=== PATIENT | female | born 1980 | race Caucasian/White ===

== ENCOUNTER 2023-10-09 23:05 | Emergency (ER) | payer MEDICARE, MEDICAID, SELFPAY ==
[2023-10-09 23:17] VITALS: BP 110/70; PULSE 71; RESP 16; TEMP 37.2; O2SAT 95; BMI 17.2
--- NOTE | 2023-10-10 | ED.GENADULT ---
HPI - General Adult General Chief complaint: Unspecified Complaint, Adult Stated complaint: opioid withdrawal Time Seen by Provider: 10/09/23 23:21 History of Present Illness HPI narrative: Patient is a 43-year-old woman who has history of narcotic addiction who was recently on a methadone taper with her last dose being 4 days ago. She presents with nausea vomiting weakness rigors and fatigue consistent with her previous experience of narcotic withdrawal. She has not had any substances such as alcohol or any street drugs. She is unable to get hold of her methadone prescribing clinic which is called the [facility]. She presents asking for 3 day course of Suboxone to get through the weekend. She has been on Suboxone previously. She states that she has done well with that. Related Data Home Medications Medication Instructions Recorded Confirmed No Known Home Medications 10/09/23 10/09/23 Allergies Allergy/AdvReac Type Severity Reaction Status Date / Time No Known Drug Allergies Allergy Verified 10/09/23 23:12 Review of Systems Status of ROS: Reports: 10 or more systems reviewed and unremarkable except as noted in History and below [facility] Medical History Opioid dependence ?F11.20 - Opioid dependence, uncomplicated (ICD-10) Social History Smoking Status: Current every day smoker Do you use any of these nicotine containing products: Vaping Products Second hand tobacco smoke exposure: No How often do you have a drink containing alcohol: never How often do you have six or more drinks on one occasion: Never AUDIT-C Alcohol total score: 0 Non-prescribed substance use: former substance user Non-prescribed substance use details: hx fentanyl use. Clean x 8 months as of 10/09/23 service: No Exam Narrative: Exam Narrative: EXAM GENERAL: Patient appears tremulous and ill. EYES: No scleral icterus. LYMPH: No supraclavicular or cervical lymphadenopathy. SKIN: Visible skin seen during exam normal or with benign process only. EXT: No dependent lower extremity pedal edema. HEART: Regular rate and rhythm with no murmurs, rubs, or gallops. LUNGS: Clear to auscultation bilaterally with no crackles or wheezes. ABD: Soft, non tender, non distended. PSYCH: Good eye contact, speech is not pressured. Const: Vital Signs, click to edit/add: Vital Signs - 24 hr 10/09/23 23:17 Temperature 98.9 F Pulse Rate [Pulse Oximeter] 71 Respiratory Rate 16 Blood Pressure [Ri ght Upper Arm] 110/70 Pulse Oximetry 95 Oxygen Delivery Me thod Room Air Course Course ED Course: Patient seen and examined. Vital Signs Vital signs: Initial Vital Signs Temperature 98.9 F 10/09/23 23:17 Temperature Source Temporal Artery Scan 10/09/23 23:17 Pulse Rate 71 10/09/23 23:17 Pulse Rhythm Regular 10/09/23 23:17 Pulse Strength 3+ Normal 10/09/23 23:17 Respiratory Rate 16 10/09/23 23:17 Blood Pressure 110/70 10/09/23 23:17 Blood Pressure Mean 83 10/09/23 23:17 Blood Pressure Position Semi-Fowlers 10/09/23 23:17 Pulse Oximetry 95 10/09/23 23:17 Oxygen Delivery Method Room Air 10/09/23 23:17 Vital Signs Temperature 98.9 F 10/09/23 23:17 Pulse Rate 71 10/09/23 23:17 Respiratory Rate 16 10/09/23 23:17 Blood Pressure 110/70 10/09/23 23:17 Pulse Oximetry 95 10/09/23 23:17 Oxygen Delivery Method Room Air 10/09/23 23:17 Temperature 98.9 F 10/09/23 23:17 Pulse Rate 71 10/09/23 23:17 Respiratory Rate 16 10/09/23 23:17 Blood Pressure 110/70 10/09/23 23:17 Pulse Oximetry 95 10/09/23 23:17 Oxygen Delivery Method Room Air 10/09/23 23:17 Medical Decision Making MDM Narrative Medical decision making narrative: Patient presents with very difficult dilemma of narcotic withdrawal. We were unable to contact her prescriber of methadone. She would prefer not to go back on methadone. I did visit with the hospital tray line supervisor and we do feel like giving a single dose of Suboxone 8-2 is reasonable. I a.m. not able to send her home with 3 days of medication because we do not have that as a policy. When asked when she becomes ill tomorrow which he should do. I did ask her to call her prescribing clinic and see if they can make arrangements for her. She will see her regular doctor back on Thursday and get placed back in Suboxone Clinic for the time being. Patient otherwise appears on injured and not ill. She seems satisfied with this outcome. Differential Diagnosis Differential Diagnosis: Opioid withdrawal viral syndrome Discharge Plan Discharge Clinical Impression: Opioid withdrawal Patient Disposition: Home, Self-Care Condition: Stable Instructions: Opioid Withdrawal (ED) Additional Instructions: Follow-up with your prescribers clinic Follow-up with her primary physician Activity Level: No Restrictions Discharge Diet: Regular Prescriptions: No Action No Known Home Medications Follow Up/Referrals: Provider,Not a Local [Primary Care Provider] - Stand Alone Forms: [employer] Info Instructions
[2023-10-10] MEDS: BUPRENORPHINE-NALOX 8-2MG FILM 1 EACH SUBLINGUAL (00:01)
== END 2023-10-10 00:12 | disposition home or self-care (01) ==
PROVIDERS: Emergency Provider Internal Medicine
DX: F11.23 Opioid dependence with withdrawal (principal)
CPT/HCPCS: 99282; 99283; J0574

== ENCOUNTER 2024-06-27 15:29 | Outpatient (CLI) | payer OTHER, SELFPAY ==
--- NOTE | 2024-06-27 16:00 | CRLHL7_ITS ---
For Patients: As a result of the Century Cures Act, medical imaging exams and procedure reports are released immediately into your electronic medical record. You may view this report before your referring provider. If you have questions, please contact your health care provider. INDICATION: Retained IUD COMPARISON: none TECHNIQUE: 2D holder scale and color Doppler images were acquired of the pelvis using a transabdominal and transvaginal approach. FINDINGS: Sonographic images demonstrate a normal size and smooth outer contour of the uterus. Uterus measures 7.9 cm in length by 4.6 cm in AP diameter by 5.3 cm in transverse dimension. Posterior intramural fibroid at the lower uterine segment measures 11 x 7 x 9 millimeters. Endometrium measures 5.6 millimeters. The arms of the IUD extend into the fundal myometrium. The right ovary measures 3.4 x 2.1 x 3.1 cm in size and the left ovary measures 4.1 x 2.4 x 3.0 cm. The ovaries demonstrate normal arterial and venous blood flow on color Doppler analysis. There are no suspicious fluid collections within the cul-de-sac. Complex right ovarian cyst with heterogeneous echoes measuring 2.5 x 1.6 x 2.2 cm. No internal vascularity or suspicious solid component. IMPRESSION: The arms of the IUD extend into the fundal myometrium. Hemorrhagic right ovarian cyst measures 2.5 cm. Dictated by Jose Cortes MD @ 06/28/2024 7:02:19 AM (Electronically Signed)
== END 2024-06-27 15:30 | disposition home or self-care (01) ==
LOC: US 15:30
PROVIDERS: Visit Provider Family Medicine
DX: T83.39XA Other mechanical complication of intrauterine contraceptive device, initial encounter (principal); N83.201 Unspecified ovarian cyst, right side
CPT/HCPCS: 76830; 76856

== ENCOUNTER 2024-08-18 06:06 | Day surgery (SDC) | payer MEDICARE, OTHER, SELFPAY ==
[2024-08-18 06:52] VITALS: BP 108/68; PULSE 74; RESP 16; TEMP 36.8; O2SAT 97; BMI 17.6
--- NOTE | 2024-08-18 07:11 | W.PM.H&PU ---
History & Physical Update History & Physical Update H&P Reviewed and patient assessed: No changes noted
--- NOTE | 2024-08-18 07:28 | PM.PROC ---
Procedure Note Time Seen by Provider: 08:10 Date Seen: 08/18/24 Date of procedure: 08/18/24 Will [facility] bill your pro fee for this procedure?: Yes Procedure: Preoperative diagnosis: 44 year-old with IUD that is imbedded in the muscle of the uterus. Postoperative diagnosis: Same Procedure: Hysteroscopic removal of ParaGard IUD Anesthesia: Conscious sedation with paracervical block. Surgeon: Joyce Cevallos MD Estimated blood loss: 10 mL Urine output: 25 mL IV fluid: 20 mL Specimen: Endometrial curettings to pathology. Findings: Exam under anesthesia: Cervix palpates normal. Uterus: Mid position, less than 8 week size, mobile, without nodularity/masses palpable. Adnexa were without fullness or nodularity. On hysteroscopy: The right arm of the ParaGard IUD was imbedded in the right side of the fundus. The endometrium was normal in appearance. Procedure: Chanda was taken to the operating where conscious sedation was found to be adequate. She was placed in the dorsal lithotomy position. An exam under anesthesia was performed with findings stated above. She was then prepped and draped in normal sterile manner. A bivalve metal speculum was placed in the vaginal canal. The cervix and vaginal canal appear normal. A paracervical block was placed using 0.5% Marcaine: 10 mL injected at the 4 and 8 o'clock positions on the cervix, total of 20 mL. The anterior lip of the cervix was then grasped with a long Allis clamp. The cervix was dilated to Hegar 6. The uterus sounded to 8 cm. The hysteroscope advanced into the uterus and a diagnostic hysteroscopy was performed with findings stated above. Normal saline was used as the insufflation medium. The IUD was visualized and grasped with a hysteroscopic forceps. The strings were then pulled out of the cervix and the strings then grasped with a ring forceps and IUD removed without difficulty. The hysteroscope and Allis clamp were removed from the uterus and cervix. Excellent hemostasis noted. Nothing was used for hemostasis. The patient tolerated the procedure well. Sponge, lap and instruments counts were correct at the end of the procedure. The patient was awakened from anesthesia and taken to the recovery area in stable condition. Anesthesia: MAC and local Disposition: same day
[2024-08-18] MEDS: SODIUM CHLORIDE 0.9 % (FLUSH) 10 ML SYRINGE IVF (07:35)
[2024-08-18] MEDS: BUPIVACAINE 0.5% 30 ML INJECTION (07:56)
--- NOTE | 2024-08-18 08:12 | SUR.OPER ---
PATIENT IUD REMOVED BY MD JOSELYN--IUD DISCARDED PER DR. ALVES REQUEST.
[2024-08-18 08:15] VITALS: BP 94/59; PULSE 73; RESP 14; TEMP 36.5; O2SAT 96
--- NOTE | 2024-08-18 08:16 | W.ANESCHARGE ---
Anesthesia Charges Start Date/Time Anesthesia Start Date: 08/18/24 Anesthesia Start Time: 07:33 Stop Date/Time Anesthesia Stop Date: 08/18/24 Anesthesia Stop Time: 08:16
[2024-08-18 08:30] VITALS: BP 97/62; PULSE 68; RESP 16; O2SAT 97
[2024-08-18 08:45] VITALS: BP 116/86; PULSE 67; RESP 16; O2SAT 99
[2024-08-18 09:00] VITALS: BP 112/82; PULSE 70; RESP 16; O2SAT 98
[2024-08-18 09:15] VITALS: BP 101/56; PULSE 73; RESP 16; TEMP 36.9; O2SAT 97
--- NOTE | 2024-08-18 09:33 | SUR.PHASEII ---
Mother is unable to give patient a ride until 12p. Patient has met criteria for discharge and is discharged from Phase 2 recovery at 0930a and is in recovery room waiting for ride.
== END 2024-08-18 09:35 | disposition home or self-care (01) ==
LOC: OR 06:07
PROVIDERS: Visit Provider Obstetrics & Gynecology
PROC: 0U5B8ZZ Destruction of Endometrium, Via Natural or Artificial Opening Endoscopic (ICD-10-PCS; CPT 58558; principal; 2024-08-18 07:15)
DX: T83.32XA Displacement of intrauterine contraceptive device, initial encounter (principal)
CPT/HCPCS: 58562; 00940; 81025; J0665; J1100; J1885; J2250; J2405; J2704; J3490

== ENCOUNTER 2025-04-24 09:23 | Emergency (ER) | payer MEDICARE, OTHER, SELFPAY ==
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
--- OUTSIDE RECORDS SUMMARY | 2025-04-24 09:26 | XMS_ITS | Clinical Summary ---
Author Organization [employer] Address [address] [place] [address] Care Team Providers Care Collective Bargaining Specialist Name Role Phone Needs Pcp, Assignment Primary Care Provider [phone] Source Comments You are receiving this document as you are listed as the primary care provider,follow-up provider, or the patient has been referred to you for consultation.This is in compliance with the Medicare and[facility] Incentive [facility],which states Providers who transition their patient to another setting of careor provider of care or refers their patient to another provider of care shouldprovide summary care record for each transition of care or referral. [employer] Allergies Active Allergy Reactions Criticality Noted Date Comments Amoxicillin 04/13/2004 Medications * This document contains information received from the source organization and may not represent a complete record from that organization. Varenicline Tartrate (CHANTIX STARTING MONTH ) 0.5 MG X 11 & 1 MG X 42 tabletIndications :Tobacco use disorder (HRC) 1 wk before you stop smoking take 0.5mg daily on days 1-3, 0.5mg 2 times each day on days 4-7, then 1mg 2 times daily 53 Tab 0 05/19/20 13 Active Additional Information Patient not taking.Reported on 12/17/2023 varenicline (CHANTIX) 1 MG tabletIndications :Tobacco use disorder (HRC) Take 1 Tab by mouth two times a day. Take after eating with a full glass of water.NOTE:Dispe nse as maintenance for refills only. 56 Tab 2 05/19/20 13 Active Additional Information Patient not taking.Reported on 12/17/2023 CLOZAPINE OR Active Carboxymethylcell ul-Glycerin 0.5-0.9 % eye drop solutionIndicatio ns:Dry eye syndrome of bilateral lacrimal glands Place 1 Drop into both eyes two times a day. 15 mL 3 12/17/19 24 Active Additional Information Patient not taking.Reported on 12/17/2023 OLANZapine (ZYPREXA) 2.5 MG tablet Take 1 Tablet (2.5 mg) by mouth. 10/21/20 23 Active SUBLOCADE 300 MG/1.5ML subcutaneous injection Inject subcutaneously. 12/07/19 24 Active intra-uterine copper contraceptive ([id number]) device 1 Device by Intrauterine route. Active Active Problems Problem Noted Date Diagnosed Date Hepatitis C 05/19/2013 Overview (05/19/2013): Careplan: Background: dx'd early 1999 by [facility]; h/o IV drug use Goals/Recommendations: Lost to GI mgmt Immunizations Immunization Administration Dates Next Due HepA Ped/Adol (1-18 yrs) 05/19/2013 HepB Adult (Engerix-B, 20+ yrs, 3 dose series) 0 05/19/2013,04/18/2011 Influenza, Unspecified Formulation 09/15/2020 Tdap 09/07/2020,04/16/2011 Family History Medical History Relation Name Comments Cataract Maternal Grandmother Relation Name Status Comments Maternal Grandmother Social History Tobacco Use Types Packs/Day Years Used Date Smoking Tobacco: Former Cigarettes 1 16 Smokeless Tobacco: Never Tobacco Cessation:Counseling Given: Not Answered Comments:1 pack per day Alcohol Use Standard Drinks/Week Comments No 0 (1 standard drink = 0.6 oz pur e alcohol) Comments No Sex and Gender Information Value Date Recorded Sex Assigned at Not on file Legal Sex Female 5:19 AM CDT Gender Identity Not on file Sexual Orientation Not on file 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 Not on file Not on file Last Filed Vital Signs Vital Sign Reading Time Taken Comments Blood Pressure 103/68 12/17/2023 3:27 PM SEALANT MIXER Pulse 89 12/17/2023 3:27 PM SEALANT MIXER Temperature 36.4 C (97.5 F) 06/01/2014 8:52 PM CDT Respiratory Rate 16 06/02/2014 1:30 AM CDT Oxygen Saturation 98% 06/02/2014 1:30 AM CDT Inhaled Oxygen Concentration - - Weight 51.9 kg (114 lb 6.4 oz) 12/17/2023 3:27 P M SEALANT MIXER Height 160.7 cm (5' 3.25) 05/19/2013 11:10 AM C DT Body Mass Index - - Plan of Treatment Health Maintenance Due Date Last Done Comments Colon Cancer Screening Plan Due 1979 Medicare Annual Wellness Visit 1980 Mammogram 1979 HepA Vaccine (1 of 2 - Risk 2-dose series) 1998 05/19/2013 HepB Vaccine (3) 07/14/2013 05/19/2013, 04/18/2011 Cholesterol 2024 05/19/2013 COVID-19 Vaccine ( - season) 2024 Influenza Vaccine (Season Ended) 2025 09/15/2020 Cervical Cancer Screening 12/17/20282023, 12/17/2023, 05/19/2013, Additional history exists Zoster/Shingles Vaccine (1 of 2) 2029 DTaP/Tdap/Td Vaccine (3 - Tdap) 09/07/2030 09/07/2020, 04/16/2011 Hep C Screening (Preventive Services) Completed 06/01/2014, 05/19/2013, 05/19/2013, Additional history exists HIV Screening (Preventive Services) Completed 07/13/2024 HPV Vaccine Aged Out No longer eligi ble based on patient's age to complete this topic Hib Vaccine Aged Out No longer eligi ble based on patient's age to complete this topic IPV (Polio) Vaccine Aged Out No longe r eligible based on patient's age to complete this topic MCV4 Vaccine Aged Out No longer eligi ble based on patient's age to complete this topic Meningococcal B Vaccine Aged Out No l onger eligible based on patient's age to complete this topic Pneumococcal Vaccine Aged Out No long er eligible based on patient's age to complete this topic Procedures Procedure Name Priority Date/Time Associated Diagnosis Comments CYTOLOGY (PAP) Routine 12/17/2023 4:08 PM SEALANT MIXER Screening for malignant neoplasm of cervix HEPATITIS C ANTIBODY, WITH REFLEX (ANTI-HCV) Routine 05/19/2013 11:39 AM CDT Hepatitis C LIPID PANEL & DIRECT LDL (IF NEEDED) Routine 05/19/2013 11:39 AM CDT Screening for endocrine, nutritional, metabolic and immunity disorder from Last 3 Months or Most Recently Relevant to Health Maintenance Results * PAP Test (12/17/2023 4:08 PM SEALANT MIXER) Case Report Pap Case: [id number] Authorizing Provider: Hans Meneses MD Collected: 12/17/2023 1601 Ordering Location: [place] [address] Received: 12/17/2023 1621 Obstetrics/Gynec ology First Screen: Alicia Ac Rescreen: Trista Figueroa CT (ASCP) Specimen: Pap Test, Routine, Cervix/Endocervix 01/07/2024 4:00 PM SEALANT MIXER [facility] Pap Specimen Adequacy Satisfactory for evaluation, endocervical/barkley sformation zone component present. 01/07/2024 4:00 PM SEALANT MIXER [facility] Pap Interpretation (NILM) Negative for intraepithelial lesion or malignancy. 01/07/2024 4:00 PM SEALANT MIXER [facility] at 1600 SEALANT MIXER Pap Disclaimer The Pap test is a screening test to aid in the detection of cervical and vaginal cancers and their precursor lesions. It is not a diagnostic procedure and should not be used as the sole means of detecting malignancy. Both false-positive and false-negative results may occur. 01/07/2024 4:00 PM SEALANT MIXER [facility] Gross Description The specimen is received in SurePath fixative and properly labeled. 1 Pap-stained SurePath slide is prepared. 01/07/2024 4:00 PM SEALANT MIXER [facility] Embedded Images 4:00 PM SEALANT MIXER [facility] Other Specimen Type ENTIRE ENDOCERVIX / Unknown 12/17/2023 4:08 PM SEALANT MIXER 12/17/2023 4:21 PM SEALANT MIXER Comment:LMP: Patient's last menstrual period was 11/24/2023 (exact date). us Hans Meneses MD LAB PATHOLOGY Final Resul t Performing Organization Address [facility] de Phone Number [facility] [address] * LIPID PANEL AND DIRECT LDL(IF NEEDED) (05/19/2013 11:39 AM CDT) Hours Fasting 12 hours [facility] Cholesterol 178 0 - 199 mg/dl [facility] Triglyceride 87 0 - 149 mg/dl [facility] HDL 99 >40 mg/dl [facility] LDL, Calc. 62 0 - 129 mg/dl [facility] Non HDL Chol, Calc 79 mg/dl [facility] 05/19/2013 11:3 9 AM CDT 05/19/2013 11:40 AM CDT Narrative [facility] - 05/19/2013 8:33 PM CDT Performed at [facility], [address] [place], [place] [id number] Jami Escoto PA-C LAB_1 Final Result Performing Organization Address [facility] de Phone Number [facility] [phone] * (ABNORMAL) HEPATITIS C ANTIBODY, WITH REFLEX (05/19/2013 11:39 AM CDT) Anti-HCV Positive (Reactive)(A ) NEGNR [facility] Comment: Per the CDC's Recommended Guidelines, Hepatitis C PCR Quantitative Testing has been Ordered This result has been reported to the [facility] Department of Health. 05/19/2013 11:3 9 AM CDT 05/19/2013 11:40 AM CDT Narrative [facility] - 05/20/2013 10:03 AM CDT Performed at [facility], [address] [place] [id number] Jami Escoto PA-C LAB_1 Final Result Performing Organization Address [facility] de Phone Number [facility] [phone] from Last 3 Months or Most Recently Relevant to Health Maintenance Insurance MEDICARE MEDICA ACCESSABILITY Care Teams Collective Bargaining Specialist Relationship Specialty Start Date End [place] [address] PCP - General 12/15/23
--- OUTSIDE RECORDS SUMMARY | 2025-04-24 09:26 | XMS_ITS | Encounter Summary ---
Author Organization [facility] Address [address] [address] Care Team Providers Care Community Development Specialist Name Role Phone Needs Pcp, Assignment Primary Care Provider [phone] Encounter Details Date Type Department Care Team (Late st Contact Info) Description 06/01/2014 Correspondence [facility] [address] [place] [id number] Radiology, Provider MRI SAFETY SHEET AND COMPATIBILITY FORM Social History Tobacco Use Types Packs/Day Years Used Date Smoking Tobacco: Every Day Cigarettes 1 16 Smokeless Tobacco: Never Comments:1 pack per day Alcohol Use Standard Drinks/Week Comments No 0 (1 standard drink = 0.6 oz pur e alcohol) Comments No Sex and Gender Information Value Date Recorded Sex Assigned at Not on file Legal Sex Female 5:19 AM CDT Gender Identity Not on file Sexual Orientation Not on file 

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
--- OUTSIDE RECORDS SUMMARY | 2025-04-24 09:26 | XMS_ITS | Clinical Summary ---
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 For routine questions regarding patient records, call [phone] during business hours, M-F 8:00 AM - 5:00 PM Central Time. Record requests for emergency care only can be directed to [phone] at any time.[facility] Allergies No known active allergies Medications acetaminophen (TYLENOL) 500 mg tablet Take 1,000 mg by mouth every 6 (six) hours as needed for pain. 0 Active calcium carbonate 1,500 mg (600 mg calcium) tablet Take 1 tablet by mouth daily. 0 Active cholecalciferol , vitamin D3, 25 mcg (1,000 Unit) tablet Take 50 mcg by mouth daily. 1 Active ibuprofen (ADVIL,MOTRIN) 600 mg tablet Take 600 mg by mouth every 6 (six) hours as needed for pain. 0 Active copper (PARAGARD) IUD 1 each by intrauterine route continuously. Active B complex-vitamin s (BALANCE B-50) tablet Take 1 tablet by mouth daily. Active sennosides-docu sate sodium (SENOKOT-S) 8.6-50 mg per tablet Take 1 tablet by mouth 2 (two) times a day. 2 Active Additional Information Patient taking differently:1 tablet oral2 times daily PRN, constipation, Reported on 02/05/2023 pregabalin (LYRICA) 25 mg capsule Take 25 mg by mouth 3 (three) times a day. [address] tablet TAKE 1 TABLET BY MOUTH DAILY FOR 24 DAYS 120 tablet 2 Active Additional Information Patient taking differently: 81 mg oral Daily, Reported on 02/05/2023 multivitamin capsule Take 1 capsule by mouth daily. Active oxyCODONE (ROXICODONE) 5 mg immediate release tabletIndicatio ns:Acute Pain Take 1 tablet (5 mg total) by mouth every 4 (four) hours as needed for pain Indication: Acute Pain. 18 tablet 02/06/2023 12:46 PM CDT 3 Active OLANZapine (ZyPREXA) 5 mg tablet Take 5 mg by mouth at bedtime. 3 Active OLANZapine (ZyPREXA) 2.5 mg tablet Take 2.5 mg by mouth. 3 Active buprenorphine-n aloxone (SUBOXONE) 8-2 mg [address] SL film Place 1 Film under the tongue daily. 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 Hepatitis C Acute Without Coma 11/28/2021 Overview (02/05/2022): Created by [facility] Annotation: Mar 23 2010 11:14AM - Renetta Lord: Is followed by GI Replacement Utility updated for latest IMO load Fracture Tibia Shaft Other C losed Subsequent With Nonunion Right 02/18/2021 Overview (02/05/2022): Added automatically from request for surgery [id number] Added automatically from request for surgery [id number] Added automatically from request for surgery [id number] Added automatically from request for surgery [id number] Fracture Nose Closed Initial 09/08/2020 Fracture Vertebra Thoracic Closed Initial 2019 Fracture Clavicle Closed Initial Left 09/07/2020 Fracture Humerus Shaft Closed Initial Left 09/07 Overview (02/05/2022): Added automatically from request for surgery [id number] Added automatically from request for surgery [id number] Added automatically from request for surgery [id number] Added automatically from request for surgery [id number] Fracture Rib Multiple Closed Initial Left 2019 Social History Tobacco Use Types Packs/Day Years Used Date Smoking Tobacco: Former Cigarettes 0.3 30 Smokeless Tobacco: Former Tobacco Cessation:Counseling Given: Not Answered Comments:I use a vape pen lightly throughout the day (3mg nicotine juice) Alcohol Use Standard Drinks/Week Comments Never 0 (1 standard drink = 0.6 oz pur e alcohol) Humiliation, Afraid, Rape, and Kick questionnair e Answer Date Recorded Within the last year, have y ou been afraid of your partner or ex-partner? No 12/20/2022 Within the last year, have y ou been humiliated or emotionally abused in other ways by your partner or ex-partner? Patient declined 12/20/2022 Within the last year, have y ou been kicked, hit, slapped, or otherwise physically hurt by your partner or ex-partner? No 12/20/2022 Within the last year, have y ou been raped or forced to have any kind of sexual activity by your partner or ex-partner? No 12/20/2022 Hunger Vital Sign Answer Date Recorded Within the past 12 months, y ou worried that your food would run out before you got the money to buy more. Sometimes true Within the past 12 months, t he food you bought just didn't last and you didn't have money to get more. Sometimes true PRAPARE - Transportation Answer Date Re corded In the past 12 months, has l ack of transportation kept you from medical appointments or from getting medications? Yes 12/03 In the past 12 months, has l ack of transportation kept you from meetings, work, or from getting things needed for daily living? Yes 12/20/2022 Housing Stability Vital Sign Answer Terence e Recorded In the last 12 months, was t here a time when you were not able to pay the mortgage or rent on time? Yes 12/20/2022 In the last 12 months, how many places have you lived? 1 12/20/2022 In the last 12 months, was t here a time when you did not have a steady place to sleep or slept in a retirement (including now)? No 12/20/2022 Education Answer Date Recorded What is the highest level of school you have completed or the highest degree you have received? Associate degree: occupational, technical, or vocational program 03/09/2022 Comments Unknown Sex and Gender Information Value Date Recorded Sex Assigned at Female 03/06/2022 9:24 PM CDT Legal Sex Female 7:11 AM CDT Gender Identity Female 02/20/2023 9:54 AM CDT Sexual Orientation Straight 03/06/2022 9: 24 PM CDT Last Filed Vital Signs Vital Sign Reading Time Taken Comments Blood Pressure 105/65 02/06/2023 12:00 PM CDT Pulse 92 02/06/2023 12:00 PM CDT Temperature 36.3 C (97.3 F) 02/06/2023 12:00 PM CDT Respiratory Rate 20 02/06/2023 12:00 PM CDT Oxygen Saturation 97% 02/06/2023 12:00 PM CDT Inhaled Oxygen Concentration - - Weight 47 kg (103 lb 9.9 oz) 02/05/2023 9:30 AM CDT Height 162 cm (5' 3.78) 02/05/2023 9:30 AM CDT Body Mass Index 17.91 02/05/2023 9:30 AM CDT Plan of Treatment Health Maintenance Due Date Last Done Comments CT Colonography 1979 Cologuard 1979 Colonoscopy 1979 Colorectal Cancer Screening 1979 FIT 1979 HIV Screening 1979 Lipid (Cholesterol) Screening 1979 Mammogram 1979 Hepatitis A Vaccines (1 of 2 - Risk 2-dose series) 1998 05/19/2013 Pneumococcal vaccine (0-49 years) (1 of 2 - PCV) 1998 Hepatitis B Vaccines (3 of 3 - 19+ 3-dose series) 07/14/2013 05/19/2013, 04/18/2011 COVID-19 Vaccine (1 - season) 2024 Influenza Vaccine (#1) 2024 09/15/2020, 2019 Depression Screening (Annual PHQ-2) 11/02/2024 Tobacco Cessation counseling 07/06/2025 07/06/2024 Fasting Glucose for Diabetes Screening 07/16/2026 07/16/2023, 03/12/2022, 11/23/2018, Additional history exists Cervical/Vaginal Cancer Screening 12/17/2026 12/17/2023 DTaP,Tdap,and Td Vaccines (3 - Td or Tdap) 09/07/2030 09/07/2020, 04/16/2011 Glucose Test for Med Monitoring Discontinued 07/16/2023, 03/12/2022, 11/23/2018, Additional history exists Hepatitis B Screening Discontinued 07/13/2024 HPV Vaccines Aged Out No longer eligi ble based on patient's age to complete this topic IPV Vaccines Aged Out No longer eligi ble based on patient's age to complete this topic Medical Devices Implanted Type Area Lining Stamper Device Identifier Shelf Expiration Date Model / Serial / Lot Grft Tndn Tib Post zn 23 - [id number] - [id number] Implanted:Qt y: 1 on 02/05/[place] [facility] [place] Tissue Left: Arm Allosource 02/20/2027 [id number] / [id number] / Breast Implant Breast Implant Breast Description:Breast augmentat ion, 2006. Sut [place] Fibertak 1.3mm - [id number] 2 Implanted:Qt y: 1 on 03/12/2022 by [place] [facility] [place] Hard[place] e.g. pins/screw s/rods Left: Shoulder Arthrex [id number] 11/01/2026 AR-3602 / / [id number] Clp Apr Lgs Intnl Sm 9.0 - [id number] 2 Implanted:Qt y: 1 on 03/12/2022 by Poncho Smith M[place] [facility] [place] e.[place]. pins/screw s/rods Right: Leg Ethicon MCS20 / / Straight Plate Implanted:Qt y: 1 on 03/12/2022 by Cam[place] Ly[place] M[place] [facility] [place] e.g. pins/screw s/rods Left: Wrist [employer] Inc RFP-STR / / Scrw Braulio 3.2x12 - [id number] 2 Implanted:Qt y: 3 on 03/12/2022 by Camden Ly[place] M.[place]. [place] [facility] [place] Hard[place] e.g. pins/screw s/rods Left: Wrist [employer] HEX3.2-12 / / Scrw Lck Lp 3.2x10 - [id number] 2 Implanted:Qt y: 1 on 03/12/2022 by Camden Ly[place] M.[place]. [place] [facility] [place] e.g. pins/screw s/rods Left: Wrist [employer] LCBS3.2-10 / / Scrw Braulio 2.7x18 - [id number] 2 Implanted:Qt y: 1 on 03/12/2022 by Cam[place] Ly[place] M[place] [facility] [place] e.g. pins/screw s/rods Left: Wrist [employer] HEX2.7-18 / / Scrw Lck 2.7x8 - [id number] 2 Implanted:Qt y: 1 on 03/12/2022 by Cam[place] M[place] [facility] [place] e.g. pins/screw s/rods Left: Wrist [employer] LCBS2.7-08 / / Scrw Lck 2.7x10 - [id number] 2 Implanted:Qt y: 1 on 03/12/2022 by Cam[place] Ly[place] M[place] [facility] [place] e.g. pins/screw s/rods Left: Wrist [employer] LCBS2.7-10 / / Scrw Lck 2.7x18 - [id number] 2 Implanted:Qt y: 1 on 03/12/2022 by Camden Ly[place] M[place]. [place] [facility] [place] e.g. pins/screw s/rods Left: Wrist [employer] LCBS2.7-18 / / Clp Apr [facility] Int [facility] 9.75 - [id number] 2 Implanted:Qt y: 1 on 03/12/2022 by Camden Ly[place] M.[place]. [place] [facility] [place] e.g. pins/screw s/rods Left: Shoulder Ethicon MSM20 / / Clp Apr [facility] Int [facility] 9.75 - [id number] 2 Implanted:Qt y: 2 on 03/12/2022 by Poncho Smith M.D. [place] [facility] [place] e.g. pins/screw s/rods Right: Leg Ethicon MSM20 / / Clp Apr [facility] 9.0 - [id number] 2 Implanted:Qt y: 1 on 03/12/2022 by Camden Lyons M.D. [place] [facility] [place] e.g. pins/screw s/rods Left: Shoulder Ethicon MCS20 / / Sut [place] Fibertak 1.3mm - [id number] 2 Implanted:Qt y: 1 on 03/12/2022 by Camden Lyons M.D. [place] [facility] [place] e.g. pins/screw s/rods Left: Shoulder Arthrex [id number] 12/02/2026 AR-3602 / / [id number] Anch Sut Crk 5.5 - [id number] 5 Implanted:Qt y: 1 on 02/05/2023 by Camden Ly[place] M.D. [place] [facility] [place] e.g. pins/screw s/rods Left: Arm Arthrex [id number] 01/30/2026 AR-1927BCFT / / [id number] Anch Sut Crk 5.5 - [id number] 5 Implanted:Qt y: 1 on 02/05/2023 by Camden Lyons M.D. [place] [facility] [place] Hard[place] e.g. pins/screw s/rods Left: Arm Arthrex [id number] 12/30/2025 AR-1927BCFT / / [id number] Kwire Fix Troc Pt 0.035x4 - [id number] 5 Implanted:Qt y: 4 on 02/05/2023 by Camden Lyons M.[place]. [place] [facility] [place] e.g. pins/screw s/rods Left: Arm Ankur [id number] / / Grft Nrv Neuragen Gd 1.5x3 - [id number] 2 Implanted:Qt y: 1 on 03/12/2022 by Poncho Smith M[place] [facility] [place] Mesh or Patch Left: Shoulder Integra 07/02/2023 [id number] / / [id number] Grft Nrv Neuragen Gd 2x2 - [id number] 2 Implanted:Qt y: 1 on 03/12/2022 by Poncho Smith M[place] [facility] [place] Mesh or Patch Left: Shoulder Integra 01/30/2023 [id number] / / [id number] Misc Other Misc Other Leg Description:Right Tibula and Fibula have chris and nails in. 09/07/2020. Misc Other Misc Other Leg Description:Left humerus has plate and screws. 09/07/2020. Misc Other Misc Other Mandible Description:Mandible has cris anne and screws in it. 09/07/2020. Misc Other Misc Other Uterus Description:IUD Procedures Procedure Name Priority Date/Time Associated Diagnosis Comments GLUCOSE, WHOLE BLOOD STAT 03/12/2022 8:11 AM CDT from Last 3 Months or Most Recently Relevant to Health Maintenance Results * Glucose, Whole Blood (03/12/2022 8:11 AM CDT) Glucose 85 70 - 140 mg/dL 03/12/2022 8:14 AM CDT STMA Blood (Blood, Arterial Line) 03/12/2022 8:11 AM CDT 03/12/2022 8:11 AM CDT Wesley Ramírez M.D. 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
--- OUTSIDE RECORDS SUMMARY | 2025-04-24 09:26 | XMS_ITS | Data Portability ---
Author Organization [employer] Address [address] [facility] [address] [place] [address] Care Team Providers Care Stores Assistant Name Role Phone ADAM GORE Primary Care Provider Unavailabl e Assessment No assessment recorded. Plan of Treatment Reminders Order Date Submit Date Provider Last Modified By Organization Details Last Modified Time Details Appointments None recorded. Lab CBC w/ auto diff 2016 017 [email or web address] [facility] ([facility]), [address] [place], [address], 7 10:45:02 CBC w/ auto diff 2016 017 [email or web address] [facility] ([facility]), [address] [place], [address], 7 20:46:59 CBC w/ auto diff 2014 015 EVE [facility] ([facility]), [address] [place], [address], 5 09:30:00 PT/INR 2014 015 EVE [facility] ([facility]), [address] [place], [address], 5 05:10:59 CMP, serum or plasma 2014 015 EVE [facility] ([facility]), [address] [place], [address], 5 09:29:20 TSH, serum or plasma 2014 015 EVESOLEDAD [facility]), [address] [facility], [place], [address], 5 09:29:45 HBsAg (hepatitis B surface Ag) neutraliza tion, serum 2014 015 [facility] ([facility]), [address] [facility], [place], [address], 5 09:30:43 hepatitis C genotype, serum or plasma 2014 015 [facility] ([facility]), [address] [facility], [place], [address], 5 19:38:03 hepatitis C virus RNA, viral load, PCR, serum or plasma 2014 015 [facility] ([facility]), [address] [place], [address], 5 19:37:48 HIV (1+2) antibodies , EIA, serum, reflex HIV-1 western blot (WB) 2014 015 [facility] ([facility]), [address] [place], [address], 5 09:30:28 Referral None recorded. Procedures None recorded. Surgeries None recorded. Imaging None recorded. Medication Orders None recorded. Patient TargetsNo targets recorded. Patient Instructions Encounter Date Encounter Id Patient Instructions Last Modified By Organization Details Last Modified Time 10/18/2015 [id number] Portions of t his report may have been created with iPrint voice recognition software. Efforts were made to ensure accuracy, but wrong-word substitutions or sound-alike substitutions may have occurred due to the inherent limitations in this technology. [email or web address] Not available 10/18/2015 15:33:31 09/19/2016 [id number] smoking cessatio n counseling, greater than 3 minutes up to 10 minutes [email or web address] [id number] Not available 10/18/2016 04:39:19 Follow up with Gastroenterology as discussed [email or web address] Not available 09/19/2016 20:24:41 Patient preferences have been discussed and considered.Portio ns of this report may have been created with iPrint voice recognition software. Efforts were made to ensure accuracy, but wrong-word substitutions or sound-alike substitutions may have occurred due to the inherent limitations in this technology.Indic ations and correct use of medicine(s) was described in detail to include any potentially adverse side effects. Patient verbally gives understanding and will use prescription(s) appropriately, and will immediately take discussed action if any such effects present. [email or web address] Not available 09/19/2016 20:24:44 12/22/2016 [id number] neck strain or sprain: rehab exercises Not available 12/22/2016 20:42:39 neck pain: care instructions Not available 12/22/2016 20:42:39 shoulder stretch es: exercises Not available 12/22/2016 20:42:39 shoulder pain: c are instructions Not available 12/22/2016 20:42:39 Reason for Referral None Reported. Results Created Date Observation Date Name Description Value Unit Range Abnormal Flag Note LastModifiedBy Organization Detail LastModifiedTime 10/18/20 15 10/18/2015 proth rombi n time PT, patient 13.7 sec 12.0-1 4.2 Not Available [facility] Dept [address] [place], [address], 10/19/2015 05:10:57 10/18/20 15 10/18/2015 proth rombi n time INR 1.1 0.9-1. 1 Usual oral antic oagul ant range : 2.0 to 3.0 High level oral antic oagul ant range : 2.5 to 3.5 Testi ng Perfo rmed: [facility], [address], [place] [address] Not Available [facility] Dept [address], [place], [address], 10/19/2015 05:10:57 10/18/20 15 10/18/2015 CMP, serum or plasm a sodium 139 mmol/ L 135-14 5 Not Available [facility] ([facility]) [address] [place], [address], 10/19/2015 09:29:17 10/18/20 15 10/18/2015 CMP, serum or plasm a potassium 4.2 mmol/ L 3.5-5. 3 Not Available [facility] ([facility]) [address] [place], [address], 10/19/2015 09:29:17 10/18/20 15 10/18/2015 CMP, serum or plasm a chloride 104 mmol/ L 99-109 Not Available [facility] ([facility]) [address] [place], [address], 10/19/2015 09:29:17 10/18/20 15 10/18/2015 CMP, serum or plasm a CO2 23 mmol/ L 22-31 Not Available [facility] ([facility]) [address] [place], [address], 10/19/2015 09:29:17 10/18/20 15 10/18/2015 CMP, serum or plasm a glucose 65 mg/dL 65-99 Not Available [facility] ([facility]) [address] [place] [address], [address], 10/19/2015 09:29:17 10/18/20 15 10/18/2015 CMP, serum or plasm a BUN 11 mg/dL 8-25 Not Available [facility] ([facility]) [address] [place] [address], [address], 10/19/2015 09:29:17 10/18/20 15 10/18/2015 CMP, serum or plasm a creatinine 0.59 mg/dL 0.50-1 .00 IDMS trace able creat inine Not Available [facility] ([facility]) [address] [facility], [address], 10/19/2015 09:29:17 10/18/20 15 10/18/2015 CMP, serum or plasm a calcium 9.8 mg/dL 8.5-10 .2 Not Available [facility] ([facility]) [address] [facility], [address], 10/19/2015 09:29:17 10/18/20 15 10/18/2015 CMP, serum or plasm a protein, total 8.0 g/dL 6.2-8. 2 Not Available [facility] ([facility]) [address] [facility], [address], 10/19/2015 09:29:17 10/18/20 15 10/18/2015 CMP, serum or plasm a albumin 4.4 g/dL 3.5-4. 7 Not Available [facility] ([facility]) [address] [facility] [place], [address], 10/19/2015 09:29:17 10/18/20 15 10/18/2015 CMP, serum or plasm a bilirubin, total 0.9 mg/dL 0.1-1. 5 Not Available [facility] ([facility]) [address] [facility] [place], [address], 10/19/2015 09:29:17 10/18/20 15 10/18/2015 CMP, serum or plasm a alkaline phosphatase 72 U/L 35-115 Not Available [facility] ([facility]) [address] [facility], [address], 10/19/2015 09:29:17 10/18/20 15 10/18/2015 CMP, serum or plasm a AST 82 U/L 10-45 high Not Available [facility] ([facility]) [address] [facility], [address], 10/19/2015 09:29:17 10/18/20 15 10/18/2015 CMP, serum or plasm a ALT 107 U/L 10-65 high Not Available [facility] ([facility]) [address] [place], [address], 10/19/2015 09:29:17 10/18/20 15 10/18/2015 CMP, serum or plasm a anion gap 12 mmol/ L 5-16 Not Available [facility] ([facility]) [address] [place], [address], 10/19/2015 09:29:17 10/18/20 15 10/18/2015 CMP, serum or plasm a BUN/creatini ne ratio (calc) 18.6 ratio 11-35 Not Available [facility] ([facility]) [address] [place], [address], 10/19/2015 09:29:17 10/18/20 15 10/18/2015 CMP, serum or plasm a estimated GFR (calc) >60 mL/mi n/1.7 3m2 >60 GFR <60: Chron ic kidne y disea se, if found over a 3 month perio d. GFR <15: Kidne y failu re. For Afric an Ameri cans, multi ply the calcu lated GFR by 1.210 Testi ng Perfo rmed: [facility], [address], [place] [address] Not Available [facility] ([facility]) [address] [place], [address], 10/19/2015 09:29:17 10/18/20 15 10/18/2015 TSH, serum or plasm a TSH 0.50 uIU/m L 0.45-5 .10 Testi ng Perfo rmed: [facility], [address], [place] [address] Not Available [facility] ([facility]) [address] [place], [address], 10/19/2015 09:29:42 10/18/20 15 10/18/2015 CBC w/ auto diff white blood cells 8.2 K/uL 3.8-11 .0 Not Available [facility] ([facility]) [address] [facility], [address], 10/19/2015 09:29:58 10/18/20 15 10/18/2015 CBC w/ auto diff red blood cells 5.36 M/uL 3.70-5 .10 high Not Available [facility] ([facility]) [address] [facility] [place], [address], 10/19/2015 09:29:58 10/18/20 15 10/18/2015 CBC w/ auto diff hemoglobin 18.4 g/dL 11.3-1 5.5 high Not Available [facility] ([facility]) [address] [facility], [address], 10/19/2015 09:29:58 10/18/20 15 10/18/2015 CBC w/ auto diff hematocrit 52.6 % 34.0-4 6.0 high Not Available [facility] ([facility]) [address] [facility], [address], 10/19/2015 09:29:58 10/18/20 15 10/18/2015 CBC w/ auto diff MCV 98.2 fL 80.0-1 00.0 Not Available [facility] ([facility]) [address] [facility], [address], 10/19/2015 09:29:58 10/18/20 15 10/18/2015 CBC w/ auto diff MCH 34.3 pg 27.0-3 4.0 high Not Available [facility] ([facility]) [address] [facility] [place], [address], 10/19/2015 09:29:58 10/18/20 15 10/18/2015 CBC w/ auto diff MCHC 34.9 g/dL 32.0-3 5.5 Not Available [facility] ([facility]) [address] [place], [address], 10/19/2015 09:29:58 10/18/20 15 10/18/2015 CBC w/ auto diff RDW 12.6 % 11.0-1 5.5 Not Available [facility] ([facility]) [address] [facility], [place], [address], 10/19/2015 09:29:58 10/18/20 15 10/18/2015 CBC w/ auto diff platelets 162 K/uL 150-40 0 Not Available [facility] ([facility]) [address] [facility], [place], [address], 10/19/2015 09:29:58 10/18/20 15 10/18/2015 CBC w/ auto diff neutrophils 59.9 % 40.0-7 5.0 Not Available [facility] ([facility]) [address] [facility], [place], [address], 10/19/2015 09:29:58 10/18/20 15 10/18/2015 CBC w/ auto diff lymphocytes 29.5 % 15.0-4 8.0 Not Available [facility] ([facility]) [address] [facility], [place], [address], 10/19/2015 09:29:58 10/18/20 15 10/18/2015 CBC w/ auto diff monocytes 7.4 % 0.0-12 .0 Not Available [facility] ([facility]) [address] [place], [address], 10/19/2015 09:29:58 10/18/20 15 10/18/2015 CBC w/ auto diff eosinophils 1.1 % 0.0-7. 0 Not Available [facility] ([facility]) [address] [place], [address], 10/19/2015 09:29:58 10/18/20 15 10/18/2015 CBC w/ auto diff basophils 2.1 % 0.0-2. 0 high Not Available [facility] ([facility]) [address] [place], [address], 10/19/2015 09:29:58 10/18/20 15 10/18/2015 CBC w/ auto diff neutrophils, absolute 4.90 K/uL 1.90-7 .40 Not Available [facility] ([facility]) [address] [facility], [place], [address], 10/19/2015 09:29:58 10/18/20 15 10/18/2015 CBC w/ auto diff lymphocytes, absolute 2.40 K/uL 1.00-3 .90 Not Available [facility] ([facility]) [address] [facility], [place], [address], 10/19/2015 09:29:58 10/18/20 15 10/18/2015 CBC w/ auto diff monocytes, absolute 0.60 K/uL 0.00-0 .80 Not Available [facility] ([facility]) [address] [facility], [place], [address], 10/19/2015 09:29:58 10/18/20 15 10/18/2015 CBC w/ auto diff eosinophils, absolute 0.10 K/uL 0.00-0 .50 Not Available [facility] ([facility]) [address] [facility], [place], [address], 10/19/2015 09:29:58 10/18/20 15 10/18/2015 CBC w/ auto diff basophils, absolute 0.20 K/uL 0.00-0 .10 high Not Available [facility] ([facility]) [address] [place], [address], 10/19/2015 09:29:58 10/18/20 15 10/18/2015 CBC w/ auto diff differential type SEE BELOW Autom ated Diffe renti al verif ied by regi crowe Not Available [facility] ([facility]) [address] [facility], [place], [address], 10/19/2015 09:29:58 10/18/20 15 10/18/2015 CBC w/ auto diff RBC morphology Normal Not Available [facility] ([facility]) [address] [facility], [place], [address], 10/19/2015 09:29:58 10/18/20 15 10/18/2015 CBC w/ auto diff WBC morphology Normal Not Available [facility] ([facility]) [address] [place], [address], 10/19/2015 09:29:58 10/18/20 15 10/18/2015 CBC w/ auto diff platelet morphology Adequa te Testi ng Perfo rmed: [facility], [address], [place] [address] Not Available [facility] ([facility]) [address] [facility], [place], [address], 10/19/2015 09:29:58 10/18/20 15 10/18/2015 HIV (1+2) antib odies , EIA, serum , refle x HIV-1 weste rn blot (WB) HIV 1/HIV 2 abs Non Reacti ve nr The Non React jacob HIV 1/2 antib yonathan resul t indic ates that antib odies to HIV 1/2 have not been detec quiana in this speci men. This resul t does not precl ude previ ous expos ure or infec tion. Testi ng Perfo rmed: [facility], [address] [facility] [place] [address] Not Available [facility] ([facility]) [address] [place], [address], 10/19/2015 09:30:25 10/18/20 15 10/18/2015 HBsAg (hepa titis B surfa ce Ag) neutr juanis tion, serum HAV Ab, total Reacti ve nr abnormal Not Available [facility] ([facility]) [address] [facility], [place], [address], 10/19/2015 09:30:41 10/18/20 15 10/18/2015 HBsAg (hepa titis B surfa ce Ag) neutr juanis tion, serum hbs Ag screen Non Reacti ve nr Not Available [facility] ([facility]) [address] [facility], [place], [address], 10/19/2015 09:30:41 10/18/20 15 10/18/2015 HBsAg (hepa titis B surfa ce Ag) neutr juanis tion, serum hbc Ab, total Non Reacti ve nr Not Available [facility] ([facility]) [address] [facility], [place], [address], 10/19/2015 09:30:41 10/18/20 15 10/18/2015 HBsAg (hepa titis B surfa ce Ag) neutr juanis tion, serum hepatitis B surface Ab >1000. 0 mIU/m L <10.0 Non Immun e 10.0 or great er Indic ates vacci ne respo nse or respo nse to HBV infec tion. Sampl es with a calcu lated value of 10 mIU/m L or great er are consi dered react jacob (prot ectiv e) in accor dance with the CDC guide lines . Not Available [facility] ([facility]) [address] [facility], [place], [address], 10/19/2015 09:30:41 10/18/20 15 10/18/2015 HBsAg (hepa titis B surfa ce Ag) neutr juanis tion, serum hepatitis C Ab Reacti ve nr abnormal Signa l/Cut off Ratio : >11.0 0 The [facility] Immun oassa y metho d is used. Hepat itis C resul ts repor quiana in accor dance with CDC guide lines . Speci mens repor quiana as Reac tive are stron gly react jacob with Signa l/Cut off ratio s >= 11.00 . Appro ximat tammi 95% of these speci mens will confi rm posit jacob by a more speci fic serol ogic or nucle ic acid test (OMKAR) . Speci mens that have Signa l/Cut off ratio s from 1.00 - 10.99 are consi dered Weak React rick . CDC guide lines sugge st that more speci fic confi rmato ry testi ng can be limit ed to Weak React jacob findi ngs. Possi ble Acute or Chron ic HCV infec tion. False posit jacob scree n react ions are known to occur . Quant itati ve HCV RNA by PCR is recom bozena d for confi rmati on. PCR will requi re a new EDTA plasm a speci men. Not Available [facility] ([facility]) [address] [facility], [place], [address], 10/19/2015 09:30:41 10/18/20 15 10/18/2015 HBsAg (hepa titis B surfa ce Ag) neutr juanis tion, serum interpretati on SEE BELOW Curre nt or past HAV infec tion, curre nt or past HCV infec tion, by initi al scree susan, false posit jacob HCV scree susan react ions are known to occur . Past HBV infec tion or vacci natio n. Testi ng Perfo rmed: [facility], [address], [place] [address] Not Available [facility] ([facility]) [address] [facility], [place], [address], 10/19/2015 09:30:41 10/18/20 15 10/18/2015 hepat itis C virus RNA, viral load, PCR, serum or plasm a HCV RNA viral load, log IU/mL 5.5 log_I U/mL notdet abnormal Not Available [facility] ([facility]) [address] [place], [address], 10/23/2015 19:37:45 10/18/20 15 10/18/2015 hepat itis C virus RNA, viral load, PCR, serum or plasm a HCV RNA viral load, IU/mL [id number] IU/mL notdet abnormal Repor table range HCV RNA 1.2 to 8.0 Log IU/mL (15 to 100,0 00,00 0 IU/mL ). This assay was perfo rmed using the FDA appro ilsa Suleman ASHLI Ampli Prep/ ASHLI TaqMa n HCV Test, v2.0. The ASHLI Ampli Prep/ ASHIL TaqMa n HCV Test, v2.0 is not inten ded for use as a scree ussan test for the prese nce of HCV in blood or blood produ cts. Gisela delacruz Perfo rmed: [facility], [address], [place] [address] Not Available [facility] ([facility]) [address] [place], [address], 10/23/2015 19:37:45 10/18/20 15 10/18/2015 hepat itis C genot ype, serum or plasm a HCV genotype Type 1b HCV genot ype was deter mined by RT-PC R and ragini cene label led probe . This assay detec ts and diffe renti ates the 6 major HCV genot ypes and their most commo n subty pes (1a, 1b, 2a/c, 2b, 3, 4, 5, 6). This test was devel oped and its perfo rmanc e sravanthi cteri stics deter mined by [facility]/ [facility]. It has not been appro ilsa or clear ed by the U.S. Food and Drug Admin istra tion. This test shoul d not be regar ded as inves tigat ional or for resea [facility] use. Gisela delacruz Perfo rmed: [facility], [address], [place] [address] Not Available [facility] ([facility]) [address] [facility], [place], [address], 10/23/2015 19:38:01 12/24/19 17 12/24/2016 CBC w/ auto diff white blood cells 6.4 K/uL 3.8-11 .0 Not Available [facility] ([facility]) [address] [place], [address], 12/29/2016 18:14:23 12/24/19 17 12/24/2016 CBC w/ auto diff red blood cells 5.82 M/uL 3.70-5 .10 high Not Available [facility] ([facility]) [address] [facility], [place], [address], 12/29/2016 18:14:23 12/24/19 17 12/24/2016 CBC w/ auto diff hemoglobin 18.6 g/dL 11.3-1 5.5 high Not Available [facility] ([facility]) [address] [facility], [place], [address], 12/29/2016 18:14:23 12/24/19 17 12/24/2016 CBC w/ auto diff hematocrit 53.5 % 34.0-4 6.0 high Not Available [facility] ([facility]) [address] [facility], [place], [address], 12/29/2016 18:14:23 12/24/19 17 12/24/2016 CBC w/ auto diff MCV 92.0 fL 80.0-1 00.0 Not Available [facility] ([facility]) [address] [facility], [place], [address], 12/29/2016 18:14:23 12/24/19 17 12/24/2016 CBC w/ auto diff MCH 32.0 pg 27.0-3 4.0 Not Available [facility] ([facility]) [address] [facility], [place], [address], 12/29/2016 18:14:23 12/24/19 17 12/24/2016 CBC w/ auto diff MCHC 34.7 g/dL 32.0-3 5.5 Not Available [facility] ([facility]) [address] [place], [address], 12/29/2016 18:14:23 12/24/19 17 12/24/2016 CBC w/ auto diff RDW 13.0 % 11.0-1 5.5 Not Available [facility] ([facility]) [address] [place], [address], 12/29/2016 18:14:23 12/24/19 17 12/24/2016 CBC w/ auto diff platelets 196 K/uL 150-40 0 Not Available [facility] ([facility]) [address] [place], [address], 12/29/2016 18:14:23 12/24/19 17 12/24/2016 CBC w/ auto diff neutrophils 57.8 % 40.0-7 5.0 Not Available [facility] ([facility]) [address] [place], [address], 12/29/2016 18:14:23 12/24/19 17 12/24/2016 CBC w/ auto diff lymphocytes 28.6 % 15.0-4 8.0 Not Available [facility] ([facility]) [address] [place], [address], 12/29/2016 18:14:23 12/24/19 17 12/24/2016 CBC w/ auto diff monocytes 12.5 % 0.0-12 .0 high Not Available [facility] ([facility]) [address] [place], [address], 12/29/2016 18:14:23 12/24/19 17 12/24/2016 CBC w/ auto diff eosinophils 0.7 % 0.0-7. 0 Not Available [facility] ([facility]) [address] [place], [address], 12/29/2016 18:14:23 12/24/19 17 12/24/2016 CBC w/ auto diff basophils 0.4 % 0.0-2. 0 Not Available [facility] ([facility]) [address] [place], [address], 12/29/2016 18:14:23 12/24/19 17 12/24/2016 CBC w/ auto diff neutrophils, absolute 3.70 K/uL 1.90-7 .40 Not Available [facility] ([facility]) [address] [place], [address], 12/29/2016 18:14:23 12/24/19 17 12/24/2016 CBC w/ auto diff lymphocytes, absolute 1.80 K/uL 1.00-3 .90 Not Available [facility] ([facility]) [address] [place], [address], 12/29/2016 18:14:23 12/24/19 17 12/24/2016 CBC w/ auto diff monocytes, absolute 0.80 K/uL 0.00-0 .80 Not Available [facility] ([facility]) [address] [place], [address], 12/29/2016 18:14:23 12/24/19 17 12/24/2016 CBC w/ auto diff eosinophils, absolute 0.00 K/uL 0.00-0 .50 Not Available [facility] ([facility]) [address] [place], [address], 12/29/2016 18:14:23 12/24/19 17 12/24/2016 CBC w/ auto diff basophils, absolute 0.00 K/uL 0.00-0 .10 Not Available [facility] ([facility]) [address] [place], [address], 12/29/2016 18:14:23 12/24/19 17 12/24/2016 CBC w/ auto diff differential type SEE BELOW Autom ated Diffe selwynti al verif ied by slide perry crowe Not Available [facility] ([facility]) [address] [place], [address], 12/29/2016 18:14:23 12/24/19 17 12/24/2016 CBC w/ auto diff RBC morphology Normal Not Available [facility] ([facility]) [address] [place], [address], 12/29/2016 18:14:23 12/24/19 17 12/24/2016 CBC w/ auto diff WBC morphology Normal Not Available [facility] ([facility]) [address] [place], [address], 12/29/2016 18:14:23 12/24/19 17 12/24/2016 CBC w/ auto diff platelet morphology Adequa te Testi ng Perfo rmed: [facility], [address], [place] [address] Not Available [facility] ([facility]) [address] [facility], [place], [address], 12/29/2016 18:14:23 09/26/20 16 09/26/2016 US, abdom en, compl ete No observ ation record ed. [email or web address] Not Available 2015 12:53:14 09/26/20 16 09/26/2016 US, abdom en, limit ed No observ ation record ed. [email or web address] Not Available 2015 12:53:43 09/26/20 16 09/26/2016 US, obste tric, 1st trime ster No observ ation record ed. [email or web address] [facility] [address] [place], [place], [address], 10/07/2016 12:56:32 09/26/20 16 09/26/2016 US, obste tric, 1st trime ster No observ ation record ed. [email or web address] Not Available 2015 12:57:19 09/26/20 16 09/26/2016 CT, angio gram, chest , w/wo contr ast No observ ation record ed. [email or web address] Not Available 2015 13:01:39 09/26/20 16 09/26/2016 CT, angio gram, chest , w/ contr ast No observ ation record ed. [email or web address] Not Available 2015 13:03:13 09/26/20 16 09/26/2016 CT, abdom en + pelvi s, w/ contr ast No observ ation record ed. [email or web address] Not Available 2015 13:05:14 09/26/20 16 09/26/2016 CT, abdom en + pelvi s, w/ contr ast No observ ation record ed. [email or web address] [facility] [address], [place], [address], 10/07/2016 13:05:33 Result Notes None recorded. Problems Name Problem SNOMED Code Status Onset Date Resolution Date Notes Provider Name and Address Organization Details Recorded Time Chronic hepatitis C [id number] Active Brooklynn ramirez [facility] 6 20:22:56 Problem Notes None recorded. Procedures Surgical History Date Name Laterality Status Provider Name and Address Organization Details Recorded Time Tonsillectomy completed [place] [facility] 10/18/2015 15:15:56 Other completed [place] [facility] 2014 15:15:56 Imaging Results None recorded. Procedure Notes None recorded. Medical Equipment None Reported. Allergies Allergen ID Allergen Name Allergen Category Reaction Reaction Severity Criticality Documentation Date Start Date Code Code System Note Provider Name and Address Organization Details Recorded Time 964549 amoxicill in medicatio n Not available Not available Not available 10/18/2015 723 RxNorm [place] [facility] 5 15:11:08 Medications Name Sig Start Date Stop Date Status Note LastModified by Organization Details LastModified Time methocarbamol active Not Available Not Available Not Available naproxen active Not Available Not Avai lable Not Available prednisone active Not Available Not Av ailable Not Available ciprofloxacin 2016 completed Not Available Not Available Not Available Vitals Date Recorded Body height Body weight Body mass index (BMI) Heart rate Respiratory rate Body temperature Oxygen saturation Oxygen saturation in Arterial blood by Pulse oximetry Systolic blood pressure Diastolic blood pressure Provider Name and Address Organization Details Last Updated DateTime 7 161.29 cm 86611.0 1 g 18 kg/m2 96 /min 14 /min 98 [degF] 97 % 97 % 118 mm[Hg] 88 mm[Hg] VERNELL Bernabe [facility] 7 20:01:30 Date Recorded Body height Body weight Body mass index (BMI) Respiratory rate Heart rate Body temperature Oxygen saturation Oxygen saturation in Arterial blood by Pulse oximetry Systolic blood pressure Diastolic blood pressure Provider Name and Address Organization Details Last Updated DateTime 6 161.29 cm 15687.0 1 g 18 kg/m2 12 /min 86 /min 98.1 [degF] 98 % 98 % 120 mm[Hg] 88 mm[Hg] VERNELL Card 6 20:19:00 Date Recorded Body height Body mass index (BMI) Body weight Respiratory rate Oxygen saturation Oxygen saturation in Arterial blood by Pulse oximetry Heart rate Systolic blood pressure Diastolic blood pressure Provider Name and Address Organization Details Last Updated DateTime 5 161.29 cm 19.2 kg/m2 84299.5 70628 g 14 /min 98 % 98 % 73 /min 120 mm[Hg] 84 mm[Hg] [place] Yadira [facility] 5 15:19:37 Social History Question Answer Notes LastModified by Organizat ion Details LastModified Time Tobacco Smoking Status Current Every Day Smoker VERNELL Card [place] [facility] 09/19/2016 20:17:19 Do You Have An Advance Directive? No Information not available 12/22/2016 What Is Your Level Of Caffeine Consumption? Moderate 4 Cups Daily [email or web address] Information not available 10/18/2015 How Much Tobacco Do You Chew? None Information not available 12/22/2016 What Type Of Diet Are You Following? REGULAR Information not available 12/22/2016 Which Illicit Or Recreational Drugs Have You Used? Heroin Once Monthly/ev vilma Few Days [email or web address] Information not available 10/18/2015 Are There Any Guns Present In Your Home? No Information not available 12/22/2016 Hookah Use? No Information n ot available 12/22/2016 Illicit Drugs Yes Heroin Information not available 12/22/2016 Live Alone Or With Others? With Others Information not available 12/22/2016 Do You Use Protection During Sex? No Information not available 12/22/2016 Seat Belts Used Routinely Yes Information not available 12/22/2016 Are You Sexually Active? Yes Information not available 12/22/2016 Smoke Alarm In Home Yes Information not available 12/22/2016 Are You Passively Exposed To Smoke? Yes Information not available 12/22/2016 How Much Tobacco Do You Smoke? 0.25 PPD [email or web address] Information not available 09/19/2016 Do You Use Sunscreen Routinely? No Information not available 12/22/2016 Sex: Unknown Functional Status Question Answer Note LastModified by Organizat ion Details LastModified Time What is your level of alcohol consumption? Moderate 4 beers daily [email or web address] Information not available 10/18/2015 Are you able to care for yourself? Yes Information not available 12/22/2016 What is your exercise level? Occasional Information not available 12/22/2016 Mental Status None recorded. Family History Nothing Reported. Medical History Condition Response Allergies/Hayfever N Heart Problems N Other N Hospitalizations N Thyroid Problems N GI Problems N Depression N COPD N Defects or Inherited Disease N ADD/ADHD N Skin Problems N Eating Disorder N Anemia N Anxiety Disorder N Diabetes N Bedwetting N Vision or Eye Problems N Arthritis N Seizures/Epilepsy N Head Injury/Concussion N Infertility N Tuberculosis N AIDS/HIV N Cancer N Stroke N Abuse/Domestic Violence N Asthma N Psychiatric Hospitalizations N Endometriosis N Bladder or Kidney Problems N Liver Disease Y Headaches N Pre-Eclampsia N Hypertension N Osteoporosis N Autism Spectrum Disorder (ASD) N Gynecological HistoryNo gynecological history recorded. Obstetrics History GPAL:G 0 P 0 0 0 0 Past Encounters Encounter ID Performer Location Encounter Start Date Encounter Closed Date Diagnosis/Indication Diagnosis SNOMED-CT Code Diagnosis ICD10 Code Diagnosis Note [id number] Adam Gore [address] [address] 10/18/2015 14:56:16 10/18/2015 16:22:29 Chronic hepatitis C 608434699 B18.2 We will check your blood work today to evaluate you for hepatitis referral. I would suggest she stop drinking alcohol as this is not helping your hepatitis. We will call you with results and need for referral to Dr. Bruner. [id number] Adam Gore [address] [address] 09/19/2016 20:12:18 09/19/2016 20:26:20 Tobacco dependence syndrome 24835632 F17.290 - The use of tobacco puts you at increased risk for significan t health conditions including coronary heart disease (leading to heart attacks), atheroscle rosis (hardening of blood vessels leading to heart attack or stroke), cerebrovas cular disease (leading to stroke), lung/throa t/mouth cancer, Chronic Obstructiv e Pulmonary Disease (OCPD including emphysema, chronic bronchitis ), diabetes, infections , asthma, reduced activity level, high blood pressure, osteoporos is - It is recommende d that you quit smoking to help prevent and/or delay the above conditions . I understand this is a difficult process and will take work but your overall health, quality of life, and length of life will improve the day you quit - Options to help you quit include nicotine gum, nicotine patches, Wellbutrin prescripti on medication , Chantix prescripti on medication . If you are interested in any prescripti on options please notify your PCP - On average it can take 7 attempts for a smoker to really quit smoking. Things that make people more successful include setting a quit date, telling friends and family you are quitting to have accountabi lity, write down your reasons for quitting and look at it regularly, get rid of everything associated with smoking (cigarette s, smoking jacket , rambo trays, lighters etc), change habits associated with smoking (i.e. if you always smoke when driving find a different habit while driving like chewing sugar-free gum) [id number] Cassie Martinez, [facility] [address] [place] [address] 12/22/2016 19:21:27 12/22/2016 20:43:09 Pain in upper limb [id number] M79.629 symptoms appear consistent with neck and shoulder muscle strain. Infection less likely given lack of fevers, normal range of motion, no skin changes and no joint redness or swelling. However, patient does have risk given IV drug use therefore order for blood work placed which patient will return to clinic for tomorrow, if white blood cell count is high we will pursue a blood culture 1. apply heat to painful area to help relax muscles, massage can also be helpful2. review handouts supplied on stretches and exercises to start doing to help reduce symptoms3. FINISH all prednisone prescribed at ER yesterday and continue muscle relaxer as needed4. you can take over-the-c ounter Tylenol extra-stre ngth 500 mg 3 times a day or ibuprofen 600 mg up to 3 times a day as needed5. return to clinic or urgent care for any worsening symptoms Numbness of hand 7227514 04 R20.0 see above [id number] Cassie Martinez[address] [address] 12/24/2016 19:01:20 12/25/2016 10:45:04 Pain in upper limb 129155311 M79.629 symptoms appear consistent with neck and shoulder muscle strain. Infection less likely given lack of fevers, normal range of motion, no skin changes and no joint redness or swelling. However, patient does have risk given IV drug use therefore order for blood work placed which patient will return to clinic for tomorrow, if white blood cell count is high we will pursue a blood culture 1. apply heat to painful area to help relax muscles, massage can also be helpful2. review handouts supplied on stretches and exercises to start doing to help reduce symptoms3. FINISH all prednisone prescribed at ER yesterday and continue muscle relaxer as needed4. you can take over-the-c ounter Tylenol extra-stre ngth 500 mg 3 times a day or ibuprofen 600 mg up to 3 times a day as needed5. return to clinic or urgent care for any worsening symptoms [id number] Cassie Martinez[address] [address] 12/24/2016 20:01:19 12/24/2016 20:50:19 Pain in upper limb 669254119 M79.629 Health Concerns Section Related Observation LastModified by Organization Detai ls LastModified Time None Recorded Concern Status LastModified by Organization Details LastModified Time None Recorded Advance Directives Directive N: Payers Insurance Date Sequence Insurance Name Policy Number Policy Lofton Covered Member ID Lofton Member ID Guarantor Name 12/23/2016 1 *SELF PAY* Sanju Akers 10/18/2015 SLIDING FEE SCHEDULE - DISCOUNT Chanda Akers 12/23/2016 1 [facility] - [email or web address] - [place] [employer] [facility] (MEDICAID HMO) Chanda Akers [id number] Chanda Akers Notes Date Note Type Note Provider Name and Address Organization Details Recorded Time 10/18/2015 text/html Patient here to establish care with [facility] and new provider. Patient denies being seen by primary care provider in the past. She states that she has chronic hepatitis C. She denies any prescription medications this time. Social history: Unemployed. 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 Family history: Mother: Negative. Father: , unknown. Surgical history: Tonsils and adenoids removed, breast implants. Patient states 15 year history of hepatitis see. She has had multiple workups with multiple liver biopsies in the past. She has never had treatment for this. She continues to drink alcohol and use heroin. We discussed the treatment program here at [facility] and that she would have to stop using drugs, alcohol, and cigarettes. She is possibly acceptable to these things if her blood work shows need for treatment. She denies any abdominal pain, fever, chills, or other systemic symptoms today. EUGENIA Tejeda [address] [place], [address], [facility] 10/19/2015 15:04:45 09/19/2016 text/html Patient for follow-up from recent ER visit. Patient was seen in the [facility] and diagnosed with cholecystitis. She states that she needs referral for her GI doctor to perform cholecystectomy. Continues with abdominal pain but is feeling much better. Denies any blood in her stool or other symptoms. [place] [address] [place], [address], [facility] 09/19/2016 20:26:15 12/22/2016 text/html pt here for ER f/u- pt seen in ER December 21 and diagnosed with neck pain and prescribe naproxen, Robaxin and Medrol Dosepak. Of note patient is an active heroin user - pt states 1week prior to ER visit she developed pain over L shoulder blade that has been constant and spread to entire L shoulder, L side of neck and down L arm. she has also developed burning pain over biceps, elbow pain, L 1st finger numbness. admits headaches.- pt could only afford prednisone and robaxin from ER , has only had 1 dose of prednisone- denies chest pain, palpitations, dizziness, fevers, joint edema and redness,- pt notes she did inject heroine into L side of neck 2days prior to pain starting [facility]/24[facility]2016 11:50:26 OBGyn Episode No OBEpisode recorded.
--- OUTSIDE RECORDS SUMMARY | 2025-04-24 09:26 | XMS_ITS | Referral Summary ---
Author Organization [facility] Address [address] [place] [address] Care Team Providers Care Phlebotomy Supervisor Name Role Phone Ab Lau MD Unavailable [phone] Sergei Quiles MD Primary Care Provider [phone] Allergies No known active allergies Medications calcium [...] (mild pain). 30 tablet 01/02/2022 8:55 AM MUSIC PUBLICIST 01/02/2022 Active ibuprofen 600 mg oral tablet Take 1 tablet (600 mg) by mouth three times a day with meals. 30 tablet 01/02/2022 8:55 AM MUSIC PUBLICIST 01/02/2022 Active oxyCODONE, immediate release, (ROXICODONE) 5 mg oral tablet Take 1 tablet (5 mg) by mouth every 6 (six) hours as needed. 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 [...] recombinant (FluBlok Quadrivalent PF) 09/15/2020 Tdap 09/07/2020 Social History Tobacco Use Types Packs/Day Years Used Date Smoking Tobacco: Every Day Cigarettes Smokeless Tobacco: Never Tobacco Cessation:Ready to Q uit: No; Counseling Given: Yes Comments:Transitioning to vaping Alcohol Use Standard Drinks/Week Comments Yes 2 (1 standard drink = 0.6 oz pur e alcohol) Comments Unknown Sex and Gender Information Value Date Recorded Sex Assigned at Female 12/08/2020 9:40 PM MUSIC PUBLICIST Legal Sex Female 8:22 PM MUSIC PUBLICIST Gender Identity Female 12/08/2020 9:37 PM MUSIC PUBLICIST Sexual Orientation Straight 12/08/2020 9: 37 PM MUSIC PUBLICIST Last Filed Vital Signs Vital Sign Reading Time Taken Comments Blood Pressure 101/76 05/23/2022 4:00 AM CDT Pulse 92 05/23/2022 4:00 AM CDT Temperature 36.8 C (98.3 F) 05/23/2022 4:23 AM CDT Respiratory Rate 15 05/23/2022 1:12 AM CDT Oxygen Saturation 97% 05/23/2022 4:00 AM CDT Inhaled Oxygen Concentration - - Weight 47.7 kg (105 lb 3.2 oz) 12/31/2021 9:28 A M MUSIC PUBLICIST Height 160 cm (5' 3) 12/31/2021 9:28 AM MUSIC PUBLICIST Body Mass Index 18.64 12/31/2021 9:28 AM MUSIC PUBLICIST Plan of Treatment Not on file Medical Devices Implanted Type Area Dealer Account Manager Device Identifier Shelf Expiration Date Model / Serial / Lot Cement Bone Simplex - [id number] Implanted:Qty : 1 on 09/08/2020 by Jose Rafael Martínez MD at [facility] Cement Right: Leg [place] Carmelo 04/01/2022 6191-1-00 / [id number] Description:used to make ant ibiotic beads made with vancomycin 1g X's 3 and tobramycin 1.2g X's 3 beads placed in right lower leg X's 10 Nail Tib 10m/315 04.034.443s - [id number] Implanted:Qty : 1 on 02/16/2021 by Jessi Vinson MD at [facility] Nail Right: Tibia Synthes 08/01/2028 04.034.44 3S / / [id number] Plt Syn Lcp N 4.5/9h 224.591 - [id number] Implanted:Qty : 1 on 09/11/2020 by Jessi Vinson MD at [facility] Plate Left: Humerus Synthes 224.591 / / Plate 4h Fracture 28mm - [id number] Implanted:Qty : 1 on 09/12/2020 by Spencer Austin MD,DDS at [facility] Plate Right: Mandible [facility] 50-712- - / / Plate 20h Locking Straight - [id number] Implanted:Qty : 1 on 09/12/2020 by Spencer Austin MD,DDS at [facility] Plate Right: Mandible [facility] 50-774- - / / Infuse Lgll - [id number] Implanted:Qty : 1 on 02/16/2021 by Jessi Vinson MD at [facility] Prosthetic Implant Non-Specific Right: Tibia [employer] 08/02/2021 [id number] / / [id number] Scrsyncrtx S/T 2.05/23 202.822 - [id number] Implanted:Qty : 1 on 09/11/2020 by Jessi Vinson MD at [facility] Screw/[place] Left: Humerus Synthes 202.822 / / Scr Crtx S/T 214.824 - [id number] Implanted:Qty : 3 on 09/11/2020 by Jessi Vinson MD at [facility] Screw/[place] Left: Humerus Synthes 214.824 / / Scr Crtx S/T 214.826 - [id number] Implanted:Qty : 4 on 09/11/2020 by Jessi Vinson MD at [facility] Screw/[place] Left: Humerus Synthes 214.826 / / Scr Crtx S/T 214.828 - [id number] Implanted:Qty : 1 on 09/11/2020 by Jessi Vinson MD at [facility] Screw/[place] Left: Humerus Synthes 214.828 / / Screw 2.8adk4it Locking - [id number] Implanted:Qty : 4 on 09/12/2020 by Spencer Austin MD,DDS at [facility] Screw/[place] Right: Mandible [facility] 25-882-07 -09 / / Screw 2.1cwm41ih Locking - [id number] Implanted:Qty : 3 on 09/12/2020 by Spencer Austin MD,DDS at [facility] Screw/[place] Right: Mandible [facility] 25-882-13 -09 / / Screw 2.5eyh75io Locking - [id number] Implanted:Qty : 1 on 09/12/2020 by Spencer Austin MD,DDS at [facility] Screw/[place] Right: Mandible [facility] 25-882-15 - / / Scr Locking 5m/30 04.005.520 - [id number] Implanted:Qty : 2 on 02/16/2021 by Jessi Vinson MD at [facility] Screw/[place] Right: Tibia [employer]ynthe[employer] 04.005.52 0 / / Scr Locking 5m/32 04.005.522 - [id number] Implanted:Qty : 1 on 02/16/2021 by Jessi Vinson MD at [facility] Screw/[place] Right: Tibia [employer]ynthes 04.005.52 2 / / Scr Ti Lckstdrv3.5/3 8 412.116 - [id number] Implanted:Qty : 1 on 02/16/2021 by Jessi Vinson MD at [facility] Screw/[place] Right: Tibia [employer]ynthes 412.116 / / Explanted Type Area Dealer Account Manager Device Identifier Shelf Expiration Date Model / Serial / Lot Scr Syn Schnz 5.0/170 294.55 - [id number] Implanted:Qty : 2 on 09/08/2020 by Jose Rafael Martínez MD at [facility] Explanted:Qty : 2 on 09/13/[address] [facility] Pin/wire Right: Leg Synthes 294.55 / / Plate Syn Lcp Dtib 3.5/246 Rt - [id number] Implanted:Qty : 1 on 09/13/[address] [facility] Explanted:Qty : 1 on 02/16/2021 by Jessi Vinson MD at [facility] Plate Right: Leg Synthes 02.112.53 0 / / Plt Ti Tclvr1/3/141/ 12h 441.42 - [id number] Implanted:Qty : 1 on 02/16/2021 by Jessi Vinson MD at [facility] Explanted:Qty : 1 on 01/02/2022 by Jessi Vinson MD at [facility] Plate Right: Tibia Synthes 441.421 / / Screw 2.5xxj0bl Mmf - [id number] Implanted:Spencer Dominguez MD,DDS (Quantity not on file) Explanted:Qty : 4 on 09/12/2020 by Spencer Austin MD,DDS at [facility] Screw/Anc hor Right: Mandible [facility] 25-092-38 -05 / / Scr Syn Crtx S/T3.03/25 204.824 - [id number] Implanted:Qty : 2 on 09/13/[address] [facility] Explanted:Qty : 2 on 02/16/2021 by Jessi Vinson MD at [facility] Screw/Anc hor Right: Leg Synthes 204.824 / / Scr Syn Crtx S/T3.03/27 204.826 - [id number] Implanted:Qty : 3 on 09/13/[address] [facility] Explanted:Qty : 3 on 02/16/2021 by Jessi Vinson MD at [facility] Screw/Anc hor Right: Leg Synthes 204.826 / / [id number] /T2.05/21 202.880 - [id number] Implanted:Qty : 2 on 09/13/[address] [facility] Explanted:Qty : 2 on 02/16/2021 by Jessi Vinson MD at [facility] Screw/Anc hor Right: Leg Synthes 202.880 / / [id number] /T 2. 202.896 - [id number] Implanted:Qty : 1 on 09/13/[address] [facility] Explanted:Qty : 1 on 02/16/2021 by Jessi Vinson MD at [facility] Screw/Anc hor Right: Leg Synthes 202.896 / / [id number] /T 2.7 202.898 - [id number] Implanted:Qty : 1 on 09/13/[address] [facility] Explanted:Qty : 1 on 02/16/2021 by Jessi Vinson MD at [facility] Screw/Anc hor Right: Leg Synthes 202.898 / / Qrdsxsykjwm4h /T 2.40 202.900 - [id number] Implanted:Qty : 1 on 09/13/[address] [facility] Explanted:Qty : 1 on 02/16/2021 by Jessi Vinson MD at [facility] Screw/Anc hor Right: Leg Synthes 202.900 / / Tbcwoxdykby9h /T 2. 202.962 - [id number] Implanted:Qty : 1 on 09/13/[address] [facility] Explanted:Qty : 1 on 02/16/2021 by Jessi Vinson MD at [facility] Screw/Anc hor Right: Leg Synthes 202.962 / / [id number] /T 2.7 202.969 - [id number] Implanted:Qty : 1 on 09/13/[address] [facility] Explanted:Qty : 1 on 02/16/2021 by Jessi Vinson MD at [facility] Screw/Anc hor Right: Leg Synthes 202.969 / / Scr Locking 5m/38 04.005.528 - [id number] Implanted:Qty : 1 on 02/16/2021 by Jessi Vinson MD at [facility] Explanted:Qty : 1 on 01/02/[address] [facility] Screw/Anc hor Right: Tibia Synthes 04.005.52 8 / / Scr Ti Crtx S/T3.03/29 404.828 - [id number] Implanted:Qty : 2 on 02/16/2021 by Jessi Vinson MD at [facility] Explanted:Qty : 2 on 01/02/2022 by Jessi Vinson MD at [facility] Screw/Anc hor Right: Tibia Synthes 404.828 / / Scr Ti Crtx S/T3.536 404.836 - [id number] Implanted:Qty : 1 on 02/16/2021 by Jessi Vinson MD at [facility] Explanted:Qty : 1 on 01/02/[address] [facility] Screw/Anc hor Right: Tibia [employer]ynthes 404.836 / / Scr Ti Crtx S/T3.540 404.840 - [id number] Implanted:Qty : 1 on 02/16/2021 by Jessi Vinson MD at [facility] Explanted:Qty : 1 on 01/02/[address] [facility] Screw/Anc hor Right: Tibia [employer]ynthes 404.840 / / Procedures Procedure Name Priority Date/Time Associated Diagnosis Comments HCV RNA DETECT/QUANT, S Routine 03/29/2021 4:00 PM CDT from Last 3 Months or Most Recently Relevant to Health Maintenance Results * HCV RNA DETECT/QUANT, S (03/29/2021 4:00 PM CDT) Pathologist [facility] HCV RNA Detect/Quant, S Undetected Undetected IU/mL 04/02/2021 4:44 PM CDT [facility] [employer] Comment: Result in log IU/mL is Undetected. ADDITIONAL INFORMATION The quantification range of this assay is 15 to 100,000,000 IU/mL (1.18 log to 8.00 log IU/mL). Testing was performed using the delfino HCV test ([employer] with the delfino Brightstorm0 System. Test Performed by: [address] [address] Manager Instrumentation: Jarrett Etienne M.D. Ph.D.; CLIA# [id number] Blood 03/29/2021 4:00 PM CDT 03/29/2021 7:04 PM CDT us Itzel Huffman PA-C SEND OUT ORDERABLE Final Re sult [facility] [address] [place] [address] from Last 3 Months or Most Recently Relevant to Health Maintenance Insurance MEDICAID [place] MEDICARE PART A & B Advance Directives For more information, please contact: [phone] * Full Code (Latest Code Status on [...] was code status determined? Physician Ap villarreal Care Teams Phlebotomy Supervisor Relationship Specialty Start Date End Date Ab Lau MD [address] [facility] [address] [place] [address] PCP - Neurologist Neurology 05/31/21 Sergei Quiles MD [address] [place], [place] [id number] PCP - General Family Medicine 04/21/24
[2025-04-24 09:38] VITALS: BP 109/62; PULSE 70; RESP 18; TEMP 37.1; O2SAT 96; BMI 17.2
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
--- OUTSIDE RECORDS SUMMARY | 2025-04-24 11:53 | XMS_ITS | CCD ---
Author Organization Unknown Care Team Providers Care Television Reporter Name Role Phone Heel Nailing Machine Operator, [place] Primary Care Provider Unava ilable Unavailable Chronic Care Management Unavaila ble Summary Purpose DataExchange Insurance Providers Payer name Policy type / Coverage type Covered libertarian ID Effective Begin Date Effective End Date Medicare [place] Medicare Part B [id number] Unknown Unknown [employer] ([facility]) Medicare Part B [id number] Unknown Unknown Family History Family History data not found Medication Administered No Medication Administered data Reason For Visit No Reason For Visit data
--- OUTSIDE RECORDS SUMMARY | 2025-04-24 11:53 | XMS_ITS | CCD ---
Author Organization Unknown Care Team Providers Care Furnace Installer Helper Name Role Phone Management Engineer, [place] Primary Care Provider Unava ilable Unavailable Chronic Care Management Unavaila ble Summary Purpose DataExchange Insurance Providers Payer name Policy type / Coverage type Covered democrat ID Effective Begin Date Effective End Date Medicare [place] Medicare Part B [id number] Unknown Unknown [employer] ([facility]) Medicare Part B [id number] Unknown Unknown Family History Family History data not found Medication Administered No Medication Administered data Reason For Visit No Reason For Visit data
== END 2025-04-24 10:59 | disposition home or self-care (01) ==
LOC: ED 10:49
PROVIDERS: Emergency Provider Emergency Medicine Emergency Medical Services; PCP Family Medicine
DX: T22.211A Burn of second degree of right forearm, initial encounter (principal); X13.1XXA Other contact with steam and other hot vapors, initial encounter
CPT/HCPCS: 99283; 99284